=== PATIENT | male | born 1990 | race African-American/Black ===

== ENCOUNTER 2018-01-12 11:47 | Emergency (ER) | payer MEDICAID ==
[~2018-01-12] VITALS: Ht 188 cm; Wt 74.8 kg
[~2018-01-12 11:47] MED LIST: AMOXICILLIN500 MG ORAL; NKM
[2018-01-12] MEDS ORDERED: Ketorolac 60mg Inj IM ONE (12:15)
[2018-01-12] MEDS ORDERED: Prochlorperazine 10mg tab ORAL PRN (12:15)
--- NOTE | 2018-01-12 12:34 | Emergency Room Report ---
History of Present Illness General Chief Complaint: Headache Present Illness HPI 27-year-old male presents to the emergency department complaining of 8 out of 10 in severity progressive dull constant headache 1 month to the left side of his head is near the left TMJ. Patient states he has had headaches in the past he has never been officially diagnosed with any specific type of headache. Patient states he is tried Advil and Excedrin Migraine with only temporary relief for a few hours before return. Patient denies nausea, vomiting, visual changes. Patient states that loud noises will precipitate his symptoms but he denies hyperacusis. Denies increase in lacrimation or rhinorrhea. Patient denies trauma or fall he denies history of high blood pressure he reports he gets agitated easily he also states that he clenches his jaw while sleeping at night. Patient denies fevers, chills, neck pain or stiffness. He denies photophobia. Patient denies recent lumbar puncture/spinal procedures. He denies daily intake of caffeine. Denies CP, Palpitations, LOC, AMS, dizziness, Changes in Vision, Sensation, paresthesias, or a sudden severe headache. Allergies: Coded Allergies: No Known Allergies (Unverified , 09/10/16) Patient History Past Medical History: see triage record Past Surgical History: none Pertinent Family History: none Immunizations: UTD Reviewed Nursing Documentation: PMH: Agreed; PSxH: Agreed Nursing Documentation-PMH Hx Hypertension: No - MIGRINES Hx Asthma: Yes Review of Systems All Other Systems: negative except mentioned in HPI Physical Exam Vital Signs Date Time Temp Pulse Resp B/P (MAP) Pulse Ox O2 Delivery O2 Flow Rate FiO2 01/12/18 11:53 97.8 91 20 121/70 99 Room Air 97.9 Sp02 EP Interpretation: reviewed, normal General Appearance: no apparent distress, alert, GCS 15, non-toxic Head: normocephalic, atraumatic Eyes: bilateral eye normal inspection, bilateral eye PERRL, bilateral eye other - no photophobia ENT: hearing grossly normal, normal voice, TMs + canals normal, other - moderately palpable TMJ's bilaterally, FROM of the jaw, no clicking or subluxation palpated durring opening and closing of jaw. Neck: full range of motion, no meningismus, no bony tend Respiratory: lungs clear, normal breath sounds, speaking full sentences Cardiovascular #1: regular rate, rhythm Musculoskeletal: back normal, gait/station normal, normal range of motion, non- tender Neurologic: alert, oriented x3, responsive, motor strength/tone normal, sensory intact, normal gait, speech normal, no pronator, grossly normal Psychiatric: judgement/insight normal Skin: normal color, no rash, warm/dry, well hydrated Medical Decision Making PA Attestation Dr. Mann is my supervising Physician whom patient management has been discussed with. Diagnostic Impression: Primary Impression: Headache Qualified Codes: R51 - Headache ER Course 27-year-old male presents to the emergency department complaining of 8 out of 10 in severity progressive dull constant headache 1 month to the left side of his head is near the left TMJ. Patient states he has had headaches in the past he has never been officially diagnosed with any specific type of headache. Patient states he is tried Advil and Excedrin Migraine with only temporary relief for a few hours before return. Patient denies nausea, vomiting, visual changes. Patient states that loud noises will precipitate his symptoms but he denies hyperacusis. Denies increase in lacrimation or rhinorrhea. Patient denies trauma or fall he denies history of high blood pressure he reports he gets agitated easily he also states that he clenches his jaw while sleeping at night. Patient denies fevers, chills, neck pain or stiffness. He denies photophobia. Patient denies recent lumbar puncture/spinal procedures. He denies daily intake of caffeine. Denies CP, Palpitations, LOC, AMS, dizziness, Changes in Vision, Sensation, paresthesias, or a sudden severe headache. Ddx considered but are not limited to migraine, SAH, Pseudomotor Cerebri, Mass lesion, Cluster VINES, Tension VINES, Post lumbar puncture VINES. Vital signs: are WNL, pt. is afebrile H&PE are most consistent with migraine headache ORDERS: - none required at this time, dx is clinical. ED INTERVENTIONS: - Compazine PO -IM Toradol -T3 Pt reports. VINES has been completely relieved. d/w pt. importance of follow up with Neurologist especially since he has daily VINES. DISCHARGE: At this time pt. is stable for d/c to home. Will provide printed patient care instructions, and any necessary prescriptions. Care plan and follow up instructions have been discussed with the patient prior to discharge. Last Vital Signs Date Time Temp Pulse Resp B/P (MAP) Pulse Ox O2 Delivery O2 Flow Rate FiO2 01/12/18 11:53 97.8 91 20 121/70 99 Room Air 97.9 Disposition: HOME, SELF-CARE Condition: Stable Scripts Butalb/Acetaminophen/Caffeine ([id number] CP) 1 Each Capsule 1 EACH PO Q8HR PRN for For Headache, #15 CAP Prov: Amanda Pa 01/12/18 Patient Instructions: General Headache Without Cause Additional Instructions: Take medications as directed. Follow up with a in 3-5 days, even if your symptoms have resolved. --Please review list of primary care clinics, if you do not already have a primary care provider Return sooner to ED if new symptoms occur, or current symptoms become worse. - Please note that this Emergency Department Report was dictated using [employer] nicu technology software, occasionally this can lead to erroneous entry secondary to interpretation by the dictation equipment. Amanda Pa Jan 12, 2018 12:34
[2018-01-12] MEDS ORDERED: Tylenol #3 tab (300mg/30mg) ORAL ONE (13:30)
[2018-01-12 13:35] VITALS: BP 111/71
[2018-01-12] MEDS ORDERED: BUTALBIT-ACETA1 EAC1 PO (13:58)
[2018-01-12 14:09] VITALS: BP 117/66
== END 2018-01-12 14:11 | disposition home or self-care (01) ==
LOC: EMR 12:20
DX: R51 Headache (principal)
CPT/HCPCS: 96372; 99283

== ENCOUNTER 2019-06-03 12:33 | Emergency (ER) | payer MEDICAID ==
[~2019-06-03] VITALS: Ht 188 cm; Wt 74.8 kg
[~2019-06-03 12:33] MED LIST changes: +BUTALBIT-ACETA1 EAC1 PO
[2019-06-03 12:50] VITALS: BP 116/69
--- NOTE | 2019-06-03 12:51 | NUR ---
ED Nurse Note: pt walked in due to rt lower abd pain for 2 months ermd at bedside awaiting orders.
[2019-06-03] MEDS ORDERED: Isovue-300 100ml vial INJ PRN (13:00)
--- NOTE | 2019-06-03 13:04 | Emergency Room Report ---
History of Present Illness General Chief Complaint: Pain Source: Patient Present Illness HPI 28-year-old male with history of asthma controlled and daily tobacco smoker here complaining of 2 months of right lower quadrant pain that exacerbates upon walking and changing position from sitting to supine to standing. Patient reports in the past few days the pain has increased in intensity rating is 7 out of 10 without radiation. Denies pain radiating to the scrotal area. Denies any protrusion of the hernia or change of color of the skin. Denies nausea vomiting, diarrhea, constipation, fever and chills. Denies chest pain, shortness of breath, palpitation, dizziness and headache. Patient has not taken medication for symptom relief. Also complains of a semi-painful round brown mass in the right lower extremity that has been there for a while. Patient denies change of size and color. I advised the patient to follow-up with a director of instruction in that regard for biopsy of the skin. Patient does not have established primary care. Allergies: Coded Allergies: No Known Allergies (Unverified , 09/10/16) Patient History Past Medical History: see triage record Past Surgical History: none Pertinent Family History: none Social History: Reports: smoking Immunizations: UTD Reviewed Nursing Documentation: PMH: Agreed; PSxH: Agreed Nursing Documentation-PMH Past Medical History: No History, Except For Hx Hypertension: No - MIGRINES Hx Asthma: Yes Review of Systems All Other Systems: negative except mentioned in HPI Physical Exam Vital Signs Date Time Temp Pulse Resp B/P (MAP) Pulse Ox O2 Delivery O2 Flow Rate FiO2 06/03/19 12:40 98.2 70 15 116/69 (85) 100 Room Air Sp02 EP Interpretation: reviewed, normal General Appearance: no apparent distress, alert, GCS 15, non-toxic Head: normocephalic, atraumatic Eyes: bilateral eye normal inspection, bilateral eye PERRL ENT: hearing grossly normal, normal pharynx, no angioedema, normal voice Neck: full range of motion, supple/symm/no masses Respiratory: chest non-tender, lungs clear, normal breath sounds, no rhonchi, speaking full sentences Cardiovascular #1: regular rate, rhythm, no edema, no murmur, normal capillary refill Gastrointestinal: non tender, no peritonitis, no bruit, non-distended, guarding - Right lower quadrant, other - Negative McBurney's negative Rovsing's Genitourinary: normal inspection, no CVA tenderness Musculoskeletal: back normal, gait/station normal, normal range of motion, non- tender Neurologic: alert, oriented x3, responsive, motor strength/tone normal, sensory intact, speech normal Psychiatric: judgement/insight normal, memory normal, mood/affect normal, no suicidal/homicidal ideation Skin: other - Round brown lesion on right lower extremity without hardness and central color change Lymphatic: no adenopathy Medical Decision Making PA Attestation All diagnoses and treatment plans were reviewed and discussed with my supervising physician Dr. Underwood Diagnostic Impression: Primary Impression: Right inguinal pain Additional Impression: Skin mass ER Course 28-year-old male with history of asthma controlled and daily tobacco smoker here complaining of 2 months of right lower quadrant pain that exacerbates upon walking and changing position from sitting to supine to standing. Patient reports in the past few days the pain has increased in intensity rating is 7 out of 10 without radiation. Denies pain radiating to the scrotal area. Denies any protrusion of the hernia or change of color of the skin. Denies nausea vomiting, diarrhea, constipation, fever and chills. Denies chest pain, shortness of breath, palpitation, dizziness and headache. Patient has not taken medication for symptom relief. Also complains of a semi-painful round brown mass in the right lower extremity that has been there for a while. Patient denies change of size and color. I advised the patient to follow-up with a director of instruction in that regard for biopsy of the skin. Patient does not have established primary care. Ddx considered but are not limited to: appendicitis, cholecystis, gastritis, gastroenteritis, UTI, pyelonephritis, SBO, diverticulitis, inguinal hernia Vital signs: are WNL, pt. is afebrile H&PE are most consistent with: Suspicious skin mass, right inguinal pain ORDERS: abdominal CT, CBC, CMP, UA, lipase, ibuprofen ED INTERVENTIONS: Ibuprofen DISCHARGE: At this time pt. is stable for d/c to home. Will provide printed patient care instructions, and any necessary prescriptions. Care plan and follow up instructions have been discussed with the patient prior to discharge. Take medication as directed follow-up with your primary care provider for further assessment also for sending you to a director of instruction to to the skin lesion that you have in your right lower extremity. If worsening symptoms return to the emergency room. CT/MRI/US Diagnostic Results CT/MRI/US Diagnostic Results : Imaging Test Ordered: CT abdomien pelvis w contrast Impression WNL Last Vital Signs Date Time Temp Pulse Resp B/P (MAP) Pulse Ox O2 Delivery O2 Flow Rate FiO2 06/03/19 12:50 98.2 15 116/69 100 Room Air 06/03/19 12:40 70 Disposition: HOME, SELF-CARE Condition: Stable Referrals: NOT CHOSEN IPA/MD,REFERRING (PCP) Patient Instructions: Abdominal Pain, Adult, Excision of Skin Lesions Additional Instructions: Take medication as directed follow-up with your primary care provider for further assessment also for sending you to a director of instruction to to the skin lesion that you have in your right lower extremity. If worsening symptoms return to the emergency room. Linda Heller Jun 03, 2019 13:04
--- NOTE | 2019-06-03 13:10 | NUR ---
ED Nurse Note: blood and urine sent
--- NOTE | 2019-06-03 13:15 | NUR ---
ED Nurse Note: pt medicated awaiting imaging.
[2019-06-03 13:27] LABS: BASOPHILS % (AUTO) 2.6 % (0.0-2.0); EOSINOPHILS % (AUTO) 2.9 % (0.0-3.0); HEMATOCRIT 44.5 % (42.0-52.0); HEMOGLOBIN 14.8 G/DL (14.2-18.0); LYMPHOCYTES % (AUTO) 30.3 % (20.0-45.0); MEAN CORPUSCULAR VOLUME 99 FL (80-99); MONOCYTES % (AUTO) 8.4 % (1.0-10.0); NEUTROPHILS % (AUTO) 55.7 % (45.0-75.0); PLATELET COUNT 251 K/UL (150-450); WHITE BLOOD COUNT 6.3 K/UL (4.8-10.8)
[2019-06-03 13:28] LABS: APPEARANCE,URINE CLEAR; BILIRUBIN, URINE NEGATIVE (NEGATIVE); COLOR,URINE PALE YELLOW; GLUCOSE, URINE (UA) NEGATIVE (NEGATIVE); KETONES,URINE NEGATIVE (NEGATIVE); LEUKOCYTE ESTERASE ,URINE NEGATIVE (NEGATIVE); NITRITE,URINE NEGATIVE (NEGATIVE); PH,URINE 8 (4.5-8.0); PROTEIN,URINE NEGATIVE (NEGATIVE); UROBILINOGEN,URINE NORMAL MG/DL (0.0-1.0)
[2019-06-03 13:31] LABS: ANION GAP 7 mmol/L (5-15); BLOOD UREA NITROGEN 9 mg/dL (7-18); CALCIUM 9.3 MG/DL (8.5-10.1); CARBON DIOXIDE 29 MMOL/L (21-32); CHLORIDE 105 MMOL/L (98-107); CREATININE 1.2 MG/DL (0.55-1.30); POTASSIUM 3.8 MMOL/L (3.5-5.1); SODIUM 141 MMOL/L (136-145)
[2019-06-03 13:36] LABS: ALANINE AMINOTRANSFERASE 19 U/L (12-78); ALBUMIN 4.1 G/DL (3.4-5.0); ALBUMIN/GLOBULIN RATIO 1.1 (1.0-2.7); ALKALINE PHOSPHATASE 55 U/L (46-116); ASPARTATE AMINO TRANSFERASE 19 U/L (15-37); BILIRUBIN,TOTAL 0.8 MG/DL (0.2-1.0)
--- NOTE | 2019-06-03 14:27 | Diagnostic Imaging Report ---
Clinical Indication: Right lower quadrant pain, increased in intensity over the past few days, currently 7 out of 10 Technique: No oral contrast utilized, per emergency room physician request IV administration nonionic contrast. Venous phase spiral acquisition obtained through the abdomen and pelvis. Multiplanar reconstructions were generated. Total dose length product 464 mGycm. CTDIvol(s) 9.57 mGy. Dose reduction achieved using automated exposure control Comparison: none Findings: Lack of enteric contrast limits assessment of the GI tract. The appendix is normal. There is no evidence of diverticulosis or diverticulitis. No small bowel distention. No free or loculated intraperitoneal gas or fluid is evident. The distal esophagus is unremarkable. The stomach is distended with food and fluid. The liver, gallbladder, bile ducts, pancreas, spleen, adrenals, kidneys are all unremarkable. No retroperitoneal or mesenteric mass or adenopathy. No pelvic mass or adenopathy. No renal or ureteral calculi, hydronephrosis, or hydroureter. Included lung bases are clear. The bones are unremarkable Impression: Limited assessment of the GI tract due to lack of enteric contrast administration Essentially unremarkable exam The CT scanner at [facility] is accredited by the [employer] and the scans are performed using protocols designed to limit radiation exposure to as low as reasonably achievable to attain images of sufficient resolution adequate for diagnostic evaluation.
[2019-06-03] MEDS ORDERED: IBU800 MG PO (14:36)
[2019-06-03 14:42] VITALS: BP 118/69
--- NOTE | 2019-06-03 14:44 | NUR ---
ER DISCHARGE NOTE: Patient is cleared to be discharged per ERMD, pt is aox4, on room air, with stable vital signs. pt was given dc and prescription instructions, pt was able to verbalize understanding, pt id band and iv site removed without complications. pt is able to ambulate with steady gait. pt took all belongings.
== END 2019-06-03 14:46 | disposition home or self-care (01) ==
LOC: EMR 12:48
DX: R10.31 Right lower quadrant pain (principal); R22.41 Localized swelling, mass and lump, right lower limb; J45.909 Unspecified asthma, uncomplicated
CPT/HCPCS: 36415; 74177; 80053; 81001; 83690; 85025; 99284; Q9967